=== PATIENT | male | born 1945 | race Caucasian/White ===

== ENCOUNTER 2024-04-02 10:28 | Inpatient (IN) | payer MEDICARE, OTHER, SELFPAY ==
[2024-03-27 08:34] VITALS: BMI 23.6
[2024-04-02] VITALS (9 sets, daily range): BP systolic 131–146; BP diastolic 66–80; PULSE 71–96; RESP 12–21; TEMP 35.9–37.2; O2SAT 93–100; BMI 22.4; BMI 26.0
--- NOTE | 2024-04-02 | DI.RAD.S_ITS ---
PROCEDURE: XR LUMBAR SPINE 2-3V INDICATIONS: L4-5 TLIF TECHNIQUE: 2 views of the lumbar spine were acquired. COMPARISON: [facility], CT, CT LUMBAR SPINE WITHOUT CONTRAST, 02/26/2024, 12:06. FINDINGS: Pedicle screw fixation at L4-L5. Intervertebral body spacers. IMPRESSION: Intraoperative guidance. Dictated by: Oh Yung M.D. on 04/02/2024 at 23:39 Approved by: Oh Yung M.D. on 04/02/2024 at 23:40
[2024-04-02] MEDS: LACTATED RINGERS 1,000 ML 42 ML IV (10:44)
[2024-04-02] MEDS: GABAPENTIN 300 MG CAPSULE PO (10:47)
[2024-04-02] MEDS: ACETAMINOPHEN 325 MG TABLET 975 MG PO (10:47)
--- NOTE | 2024-04-02 12:07 | PM.PREOP ---
Pre-operative Note Interval Note History & Physical reviewed/Exam performed by Physician: Yes Changes to H&P: No
--- NOTE | 2024-04-02 12:16 | SUR.OPER ---
Prone on spine table, head in foam head support, padded chest and pelvic supports, gel pad at knees, lower legs supported by pillows; nipples, genitalia and toes free of pressure, arms secured on foam padded arm boards at <90 degrees abduction. Tape over blanket at thigh secured to table.
--- NOTE | 2024-04-02 13:16 | PM.OP.1 ---
Operative Date/Time/Diagnoses Date of procedure: 04/02/24 Time of procedure: 13:17 Pre-op diagnosis: 1. 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 Lumbar hardware loosening 3. 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 L4-5 Postero-lateral and posterior interbody fusion 2. L4-5 interbody cage placement. 3. L4-5 decompressive laminectomy with bilateral facetecomies 4. L4-5 Posterior non-segmental instrumentation 5. L2-5 posterior segmental instrumentation removal 6. L2-3, L3-4 hemilaminectomy and exploration of fusion 7. [place] of bone marrow from iliac crest 8. Utilization of microsurgical technique and operating microscope 9. Utilization of robotic assisted navigation. Same procedure as scheduled: Yes Indications: Patient has been having chronic back pain and worsening lumbar radiculopathy. 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 Patient failed multiple conservative management with worsening pain weakness and numbness in his lower extremity. Patient has been having difficulty performing activity of daily living. After discussing risks benefits of treatment options, patient elected proceed with surgery. Surgeon: Miguel Lala Rn Sane: Regine López Click Yes if Unassisted: No Anesthesia Type: General Operative Notes Closure Type: primary Specimen(s): none sent Prosthetic devices, grafts, tissues, transplants, or devices: Globus CREO MIS screws, Rise cage Applied: catheter Estimated Blood Loss (mL): 100 Blood products transfused: none Procedure in detail: Patient was seen in the preoperative area. Risks and benefits of the surgery was discussed with the patient. Informed consent was obtained from the patient and placed in the chart. Surgical site was marked. Patient was taken to the operative room. General anesthesia was administered. Prophylactic antibiotic was given to the patient less than 30 min before the incision was made. Patient was placed into a prone position on the Manny table. Patient's back was then prepped and draped in the sterile fashion. Time-out was performed at this time. After patient was prepped and draped, patient's PSIS was palpated and marked bilaterally. Small 1 cm incision was made over the PSIS for placement of the reference probes. Two trocar was placed into the PSIS 1 on each side. The reference probe was attached to the trocar of the reference apparatus. At this time the C-arm imaging was used to confirm AP and lateral of L4, L5 vertebrae and merged the C-arm imaging using the [employer] robotic navigation system with the CT of the lumbar spine. After successful merging was completed and confirmed, skin marker was used to jahaira out the skin incision using the [employer] robotic arm. Bilateral incision was made at this time. Using patient's previous scar incision was made over the L4, L5 interval on the right side. Fascia was incised in line with skin incision. Patient's previously placed hardware over the L2, L3, L4-5 level was identified by dissecting down to the level the hardware using a Bovie and a Kramer. The locking caps which was removed using hardware removal pile driver operator. The locking josh was then removed from the tulips of the pedicle screws using a Lauren. The pedicle screws were then removed using the screwdriver. Pre templated trajectory was used and guided using the [employer] robotic navigation system for left L4, L5 pedicle screws and right L4, L5 pedicle screws placement. This was done by using the robotic arm to guide the high-speed bur to make a cortical entry point. Next a drill was placed also using the robotic arm and guided using the navigation system drilling partially through bilateral L4, L5 pedicles. Next L4, L5 pedicle screws it was pre templated and measured was placed onto the power pile driver operator and inserted into the pedicles bilaterally. After all 4 screws were placed C-arm imaging was taken of both AP and lateral to confirm the placement. Excellent placement of the screws were confirmed and a matched precisely with the pre planned screw placement using the navigation system. MARs retractor was inserted using [employer] guidence. Globus MARS retractors was placed inside the incision and docked onto the L4 lamina. Using microsurgical technique and operating microscope, a L4 laminectomy and L4-5 facetectomy was performed using a Kerrison rongeur. The laminectomy and facetectomy was performed in order to decompress patient's cauda equina as well as the nerve roots exiting at the L4-5 level. Patient was found have severe lateral recess and neural foramen stenosis which was fully decompressed after the laminectomy facetectomy. More than 75% of the facets were removed during the process of decompression rendering L4-5 level grossly unstable and required a fusion procedure at the same time. The disc space at L4-5 was identified, and a total diskectomy was performed at L4-5 level. The endplates were decorticated using a rasp and shaver. The total diskectomy and decortication was performed at L4-5 level in order to to accomplish a L4-5 fusion. The local bone from the laminectomy and facetectomy was saved for local bone grafting. After the total diskectomy and decortication was completed, Viacel bone graft material was combined with local bone that was harvested earlier. At this time, a separate skin is incision was made over the iliac crest. A Jamshidi needle was inserted into the iliac crest through a separate skin incision on the right. 5 cc of bone marrow aspiration was obtained through the separate skin incision using a Jamshidi needle from the iliac crest. The bone marrow aspiration was combined with local bone and the Viacel bone grafting material. The bone grafting material was placed into the L4-5 interbody space along with a expandable cage. The cages were expanded to its maximum height using the torque limiting screwdriver. The disc preparation as well as the cage insertion were also performed under navigation guidance. After the cage was placed, AP and lateral C-arm imaging was taken to confirm placement of the cage and excellent position was confirmed. The fusion mass on the right side of L2-3, L3-4 ,L4-5 was exposed by performing a right-sided hemilaminectomy at L2-3, L3-4, L4-5 level. The hemilaminectomy was performed using the Kerrison rongeur to undercut the lamina as well removing additional epidural scar tissue for purpose of decompressing the epidural space. The fusion mass was found to be solid at L2-3 L3-4 level and has visible motion at L4-5 level indicating pseudoarthrosis. Globus MARS retractor was inserted and docked onto the L4-5 posterolateral gutter. Using the power drill, posterior-lateral decortication was performed at L4-5 level until bleeding cortical bone was identified. The remaining bone grafting material was placed into the L4-5 posterior lateral gutter he order to accomplish posterolateral fusion at the L4-5 level. At this time the tulips were attached to the L4 and L5 pedicle screw shanks. This was done in L4 and L5 pedicles bilaterally. After measuring the length of the rods, they were inserted into the tulips of the pedicle screws and locked in place using locking caps and torque limiting screwdriver bilaterally. Total 4 caps and 2 titanium rods was used in order to complete the posterior instrumentation construct. After all the hardware was placed, and confirmed with AP and lateral C-arm imaging, the wound was then irrigated with sterile normal saline and packed with Ray-Jayesh gauze for 3 min to accomplish hemostasis. After the gauze was removed the deep fascia was closed with #1 Vicryl suture. The subcutaneous layer was closed with 2-0 Vicryl. The skin was closed with skin chino. Patient tolerated the procedure well. There were no complications. Neuro monitoring system was used to monitor patient's neurologic status throughout entire procedure. There was no disturbance of the neural monitoring signals throughout the case. The Operation could not have been safely performed without compromising the technical result or length of the procedure, without the assistance of a skilled surgical technology instructor. The surgical technology instructor was medically necessary for proper positioning, retraction and manipulation of instruments, proper exposure, surgical preparation, and manipulation of tissue. Complications: none Post-operative Condition: stable Disposition: PACU Plan for aftercare: Admit to inpatient hospital
[2024-04-02] MEDS: CEFAZOLIN 2 GM/100 ML PREMIX 100 ML IV ×2 (13:34→21:23)
[2024-04-02] MEDS: BUPIVACAINE 0.25% (PF) 60 ML, EPINEPHrine 0.15 MG INJ (13:59)
[2024-04-02] MEDS: BUPIVACAINE LIPOSOME 266 MG/20 ML VIAL INJ (13:59)
[2024-04-02] MEDS: hydrOXYzine 50 MG/ML INJ 25 MG IM (16:55)
[2024-04-02] MEDS: OXYCODONE IR 5 MG TABLET PO ×3 (16:56→21:20)
[2024-04-02] MEDS: ACETAMINOPHEN 325 MG TABLET 650 MG PO (18:10)
[2024-04-02] MEDS: LACTATED RINGERS 1,000 ML 125 ML IV (18:10)
--- NOTE | 2024-04-02 19:34 | PC.NURSE ---
Pt arrived from PACU at 1710, A&Ox4, VSS on RA. CMS+, lungs CTA, c/o 4/10 back pain, gauze and tape dressing to back c/d/i, márquez catheter patent and draining. Patient and family oriented to room and call light. Bed in low position, call light within reach, bed alarm activated.
[2024-04-02] MEDS: DONEPEZIL 5 MG TABLET 10 MG PO (21:19)
[2024-04-02] MEDS: METFORMIN HCL 500 MG TABLET PO (21:20)
[2024-04-02] MEDS: ATORVASTATIN 20 MG TABLET PO (21:20)
[2024-04-02] MEDS: SENNOSIDES 8.6 MG TABLET 17.2 MG PO (21:20)
[2024-04-02] MEDS: DOCUSATE 100 MG CAPSULE PO (21:20)
[2024-04-02] MEDS: CARBIDOPA-LEVODOPA ER 50/200 TABLET 1 EACH PO (21:28)
[2024-04-02] MEDS: CARBIDOPA-LEVODOPA ER 50/200 TABLET 0.5 EACH PO (21:28)
[2024-04-03] MEDS: LACTATED RINGERS 1,000 ML 125 ML IV (02:10)
[2024-04-03 05:44] LABS: Hematocrit 30.8 % (41-53); Hemoglobin 10.5 g/dL (13.5-17.5)
[2024-04-03 06:00] VITALS: BP 136/84; PULSE 64; RESP 18; TEMP 37; O2SAT 96
[2024-04-03] MEDS: CEFAZOLIN 2 GM/100 ML PREMIX 100 ML IV (06:15)
[2024-04-03] MEDS: ACETAMINOPHEN 325 MG TABLET 650 MG PO (06:28)
[2024-04-03] MEDS: PANTOPRAZOLE DR 20 MG TABLET PO (06:28)
[2024-04-03] MEDS: CARBIDOPA-LEVODOPA ER 50/200 TABLET 1.5 EACH PO ×2 (07:30→12:03)
--- NOTE | 2024-04-03 07:42 | PM.DS.1 ---
History of Present Illness History of Present Illness Date Patient Seen: 04/03/24 Time Patient Seen: 07:42 Chief complaint: INPT Narrative: Patient has been having chronic back pain and worsening lumbar radiculopathy. 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 Patient failed multiple conservative management with worsening pain weakness and numbness in his lower extremity. Patient has been having difficulty performing activity of daily living. After discussing risks benefits of treatment options, patient elected proceed with surgery. Discharge Providers Provider Date of admission: 04/02/24 10:28 Discharge Date: 04/03/24 Consults: 04/02/24 17:00 Consult to Occupational Therapy Evaluate & Treat Comment: Physician Instructions: Evaluate and treat Consult to Physical Therapy Evaluate & Treat Comment: Physician Instructions: Evaluate and Treat Discharge provider: Waylon Cano PA-C Summary Hospital Course Discharge Diagnosis: 1. 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 Lumbar hardware loosening 3. 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 L4-5 Postero-lateral and posterior interbody fusion 2. L4-5 interbody cage placement. 3. L4-5 decompressive laminectomy with bilateral facetecomies 4. L4-5 Posterior non-segmental instrumentation 5. L2-5 posterior segmental instrumentation removal 6. L2-3, L3-4 hemilaminectomy and exploration of fusion 7. [place] of bone marrow from iliac crest 8. Utilization of microsurgical technique and operating microscope 9. Utilization of robotic assisted navigation. Same procedure as scheduled: Yes Surgeon: Miguel Lala Cell Technician: Regine López Click Yes if Unassisted: No Anesthesia Type: General Operative Notes Closure Type: primary Specimen(s): none sent Prosthetic devices, grafts, tissues, transplants, or devices: Globus CREO MIS screws, Rise cage Applied: catheter Estimated Blood Loss (mL): 100 Blood products transfused: none Status at Discharge Cognitive/behavioral status at discharge: oriented Functional status at discharge: uses cane/walker Overall status at discharge: patient is back to baseline Time Spent with Patient Time spent: Less than 30 minutes Exam Vital Signs (past 8 hours): - 04/03/24 06:00 Temperature 98.6 F Pulse Rate 64 Respiratory Rate 18 Blood Pressure 136/84 Pulse Oximetry 96 Oxygen Flow Rate 0 Oxygen Delivery Method Room Air Oxygen Flow Rate 0 Narrative Exam Narrative: Patient found sitting in his bed. Denies any nausea, vomiting, fever or chills. Pain is localized to his back. He states his right leg was weaker than his left before surgery. Dressing is clean, dry and intact. Lower extremities: Left 3/5 EHL, PF, 4/5 DF, knee flex and extend Right: 5/5 EHL, PF< DF, knee flex and extend. Sensation grossly intact to light touch. Resp Effort & Inspection: normal respiratory effort and able to speak in complete sentences Objective Labs 04/03/24 05:37 Labs: Laboratory Results - last 24 hr 04/03/24 05:37 Hgb 10.5 L Hct 30.8 L PFSH Medical History (Updated 03/27/24 @ 09:19 by Bessie Akbar RN) Memory changes Dermatitis Easy bruisability Kidney stones GERD (gastroesophageal reflux disease) HTN (hypertension) Diabetes Neuropathy Parkinson disease Surgical History (Updated 03/27/24 @ 09:19 by Bessie Akbar RN) Hx of shoulder surgery Hx of elbow surgery Hx of tonsillectomy Hx of lithotripsy Hx of cholecystectomy Hx of bilateral cataract extraction History of lumbar surgery (02/07/16) Social History household members: spouse Smoking Status: Former smoker alcohol intake: former Discharge Assessment & Plan Assessment and Plan Assessment: Status post lumbar hardware removal and TLIF Plan of Treatment: Discharge to home. Post operative medications have been prescribed and discussed. Baseline pain control with acetaminophen 500mg q4hr prn. Ambulate with assistive devices. No deep bending or twisting at the waist. No lifting more than 10 pounds. Follow up in clinic in 2 weeks for wound check. Discharge Plan Discharge Plan Patient Disposition: Home Provider Discharge Comment: DC pending PT approval Discharge orders & Medications Prescriptions: Continued omeprazole 20 MG capsule,delayed release(DR/EC) 20 mg PO QDAY Qty: 0 atorvastatin [Lipitor] 20 MG tablet 20 mg PO QPM Qty: 0 aspirin 81 MG tablet,delayed release (DR/EC) 81 mg PO QPM Qty: 0 metformin 500 mg Tablet 500 mg PO BID carbidopa-levodopa 25-100 mg Tablet Extended Release 1 tab PO TID donepezil [Aricept] 10 mg Tablet 10 mg PO BEDTIME glipizide 10 mg Tablet 10 mg PO DAILY carbidopa-levodopa 50-200 mg Tablet Extended Release 1 tab PO TID Rx Instructions: divide evenly over waking hours losartan 100 mg Tablet 100 mg PO DAILY Follow up/Referrals: Regine López PA-C [Advanced Acquisitions Editor] - 04/21/24 1:00 pm (appt:04/21 @ 1:00 with Nisreen MEI @ [facility] please arrive 15 min prior to scheduled appointment time) Diet/Activity/Treatments Diet: Diet as Tolerated Activity: No deep bending or twisting at the waist. No lifting more than 10 pounds. Cold/Heat Therapy: Heating pad as needed for pain. Skin/Wound/Dressing Care Report to your healthcare provider any signs of infection, such as:: chills, fever, night sweats, unusual drainage and unusual redness Dressing: May shower. Keep dressings as dry as possible. If dressing becomes wet or dirty, may remove and replace with clean, dry gauze. No bathing or otherwise soaking incisions. Do not apply any creams, lotions, or ointments to incisions. Visit Report/Discharge Packet Instructions: DI for Orthostatic Hypotension, DI for Transforaminal Lumbar Interbody Fusion Stand Alone Forms: Patient Portal/API, Stroke Signs & Symptoms, Surgery Discharge Quality VTE Deep Vein Thrombosis/Pulmonary Embolism Present on Admission: No
[2024-04-03 08:00] VITALS: BP 113/66; PULSE 67; RESP 14; TEMP 36.6; O2SAT 97
[2024-04-03] MEDS: METFORMIN HCL 500 MG TABLET PO (08:14)
[2024-04-03] MEDS: DOCUSATE 100 MG CAPSULE PO (08:14)
[2024-04-03] MEDS: OXYCODONE IR 5 MG TABLET PO (08:15)
--- NOTE | 2024-04-03 09:18 | CM.DANOTE ---
Initial DCP Assessment Visit Note Reviewed EMR and team rounds for status updates. Met with pt and family at bedside to introduce self and role. Pt was found to be alert/oriented, visiting with family, expressing feeling that his pain is well controlled. He will be working with PT later this morning, then will d/c home with family, family will transport. Pt/family deny any CM assistance or resource needs at this time. He has a plan for OP f/u with Ortho on 04/21, during which Dr. Lala will discuss the plan for OP PT. Payor: Medicare Attending: Dr. Lala Pt is an 79 year-old M post-op day 1 from a complicated lumbar fusion surgery. He has had the same hx several years ago with good benefit, until he lost his balance while working outside, fell backward, and has had worsening pain since that time. He had no postoperative complications, and is feeling ready for d/c home later this morning. Family will be providing care assistance during his initial recovery period. Discharge Planning/Care Management CM Discharge Assessment Start: 04/03/24 09:16 Freq: Status: Active Protocol: Document 04/03/24 09:17 DPL (Rec: 04/03/24 09:18 DPL [id number]) Discharge Planning Assessment Assigned Structural Layout Worker FÉLIX Bui Advance Directives? Yes Advance Directives on File No History Provided By Patient,Family Member,Medical Record Has Patient been admitted in last 30 No days? Prior Living Arrangements House Household Members spouse Type of transporation used prior to Drives own vehicle admit Independent with ADL's Yes Is patient alert and oriented? Yes Comment N/A Caregiver for Another No DME Already Rented / Owned Elevated Toilet Seat,FWW / Walker Patient/Family Preference OP PT Therapy Barriers to Discharge No Discharge Plan Home Community Services Physical Therapy Transportation Arrangement Family Referrals Initiated None needed Whiteboard Updated in Patient Room with Yes name and ext. # of Structural Layout Worker Review Status In Process Please Provide Date Initial DC 04/03/24 Assessment Was Performed Pre-Anesthesia Assessment Start: 03/27/24 08:34 Freq: Status: Complete Protocol: Document 03/27/24 08:34 CAB (Rec: 03/27/24 09:38 CAB [id number]) Pre-Anesthesia Assessment PAC Comment Phone assessment with patient Preferred Name Omega Patient Information Reviewed Via Phone Assessment Assessment Completed With Patient,Spouse Diagnostic Results BMP/CMP,CBC,EKG Comment Outside labs/EKG scanned Primary Care Provider Adair Schulz Comment visit 09/06/23 scanned and in surgery folder Seen Specialist in Last 12 Months Yes Specialist Seen Operations And Maintenance Manager,Orthopedist, Other Comment Neurology-Dr. Reed Visit 01/16/24 scanned and in surgery folder Primary Language Wolof Recorder Helper Seismograph Required No Height 175.26 cm Weight 72.575 kg Body Mass Index (BMI) 23.6 Hearing Ability Normal Visual Assist Glasses Dentition Type Teeth, Natural Present,Teeth, Missing Barriers to Learning Age related,Memory Hx Anesthesia Reactions No Hx Family Anesthesia Reaction Yes: A cousin never came out of anesthesia Hx Malignant Hyperthermia No Hx Blood Transfusions No Anesthesia Review Requested No Chief Lending Officer No alcohol intake former Smoking Status Former smoker how long ago did patient quit smoking In the s Substance Use Type does not use Pain Present Pain Reported Musculoskeletal Symptoms Abnormal Gait,Back Pain, Difficulty Walking History of Falling (Recent or History of Yes ) Patient is completely paralyzed or No completely immobile Mental Status Oriented to own ability Is patient on oxygen? No Does patient have COLIN/SOB No Hx Sleep Apnea No Currently Taking a Beta Yajaira No Hx Chest Pain No Hx SOB No Hx Syncope or Dizziness No Anti-Coagulant Therapy Yes: ASA 81mg-advised to hold 7 days prior per PCP Has a Quad Stayer No Cardiac Testing No Hx Pacemaker/ICD No Pacemaker Rep Required? No Cardiac Clearance Received Not Applicable Diet Type At Home Regular,Low Carb Dysphagia Yes: Sometimes, related to pills Gastrointestinal Symptoms Reflux Bladder Pattern Nocturia Urinary Catheter Present No Hx Urinary Self Catheterization No Diabetes Yes: Pt checks blood sugar every morning HgbA1C 6.7 Comment Pt states taken in August Hx Drug Resistant Organism No Presence of External or Internal Medical Yes: Vinicio eye IOLs, lumbar Devices hardware, Comment No Covid symptoms in last 2 months Marital Status Lives With spouse Current Living Arrangements House Number of Floors (Floors) One Floor Number of Stairs To Enter/Railing? 4, no railings in front Support System Spouse Does the Patient Have Assistance After Yes Surgery Patient Discharge Plan Description Return Home Comment Pt advised overnight length of stay per surgeon Feels Safe in Current Environment Yes Been Physically Hurt or Threatened By a No Person in Current Environment Do you have thoughts of harming yourself None or others? Are you currently considering suicide? No Do you have a plan to hurt yourself or No Plan others? Do You Have Any Spiritual Beliefs That No May Affect Your HC Choices? Do You Have Any Cultural Practices That No May Affect Your HC Choices? Who Can We Speak to About Patient's Care Family, friends Identifying Code for Release of Patient Declines to issue Information Health Care Proxy/Next of Kin Rylie () Health Care Proxy Emergency Contact Name Nel (daughter) Emergency Contact Advance Directives? Yes Advance Directives on File No Requested Patient Bring Advanced Yes Directives DOS Power of Blood Donor Unit Assistant Yes Power of Blood Donor Unit Assistant Name Rylie () Power of Blood Donor Unit Assistant PAC Instructions Diabetes instructions,Durable medical equipment,Medications to take/avoid,Nasal antibiotic ,No ETOH/petroleum product on skin DOS,NPO,Pre-surgical wash ,Sturdy shoes/comfortable clothes,Do not bring valuables and remove jewelry
--- NOTE | 2024-04-03 10:31 | PT.IIE ---
Current Diagnoses Pseudarthrosis after fusion or arthrodesis (04/02/24) Other mechanical complication of other internal orthopedic devices, implants and grafts, initial encounter (04/02/24) Surgery Performed Operation Date: 04/02/24 12:15 Actual Procedures p L4-5 TLIF, L2-5 HWR-Jessica - Miguel Lala MD Surgical History (Last Updated 03/27/24 @ 09:19 by Bessie Akbar, RN) History of lumbar surgery (02/07/16) Hx of bilateral cataract extraction Hx of cholecystectomy Hx of elbow surgery Hx of lithotripsy Hx of shoulder surgery Hx of tonsillectomy Medical History (Last Updated 03/27/24 @ 09:19 by Bessie Akbar, PARVEENA) Dermatitis Diabetes Easy bruisability GERD (gastroesophageal reflux disease) HTN (hypertension) Kidney stones Memory changes Neuropathy Parkinson disease Physical Therapy Inpatient Evaluation/Re-Eval M1 PT/OT-IP Prior Functional Status Start: 04/03/24 08:16 Freq: NEEDED Status: Active Protocol: Document 04/03/24 08:49 MB (Rec: 04/03/24 10:30 MB [id number]) Medical Review Prior Functional Status Medical History Reviewed Yes Diet/Fluid Consistency Regular Communication WNLs Mobility and Gait I Activities of Daily Living and IADL's I Prior Functional Level (Other details) Pt with recent dx of PD, about a year Social History Household Members spouse Living Arrangements House Number of Floors (Floors) One Floor Number of Stairs To Enter/Railing? 3 steps and no rail to enter home Employment Status Retired Additional Social History Comment Pt has regular flat bed and no rails and no AD in the home, PT needing to head out to rounds and obtain RW and PT trying to get done for nsg student to take out catheter and so will defer BR set-up to OT eval this afternoon. PT answers many questions about PD, orthostatic hypotension and RW during assessment, ed pt in back precautions and pt practices log rolling. M2 PT-IP Current Condition Start: 04/03/24 08:16 Freq: NEEDED Status: Active Protocol: Document 04/03/24 08:49 MB (Rec: 04/03/24 10:30 MB [id number]) Physical Therapy Current Condition Current Condition Evaluation Date 04/03/24 Treatment Diagnosis L4-5 TLIF, L2-5 hardware removal M3 PT-IP Subjective Start: 04/03/24 08:16 Freq: NEEDED Status: Active Protocol: Document 04/03/24 08:49 MB (Rec: 04/03/24 10:30 MB [id number]) Subjective Physical Therapy Visit Type Type Initial Evaluation Visit Start Time 08:49 Visit Stop Time 09:44 Notes Pt and family state that he has not been OOB since surgery , arrived up to floor after 1700 last date Number of NEON SIGN SERVICER Visits 0 Physical Therapy Visit Comments Patient Comments Pt is pleasant and cracking jokes during assessment, nsg student checking in about removing catheter during assessment Therapy Pain Assessment Pain When Pain Assessed At Rest Pain Present Pain Present Pain Reported M4 PT-IP Mobility and Gait Start: 04/03/24 08:16 Freq: NEEDED Status: Active Protocol: Document 04/03/24 08:49 MB (Rec: 04/03/24 10:30 MB [id number]) PT-Bed Mobility Assessment Rolling Type of Rolling Log Rolling,Roll to Right Level of Assist Standby Assistance Supine to Sit Supine to Sit Standby Assistance Sit to Supine Sit to Supine Standby Assistance Scooting Scooting to Edge of Bed Standby Assistance PT-Transfer Assessment Sit to and From Stand Sit to and from Stand Minimal Assistance,1 Person Assistance,Use of Upper Extremities Equipment Transfer Assistive Device Gait Belt,Front Wheeled Walker Comments Mobility Comments Min A to transfer and to take a few steps forward and back with RW. Pt c/o light- headedness upon sitting. BP and HR in LUE: sitting 106/68, 111; standing 83/61, 111 and pt with con't c/o when up and so returned to supine d/t orthostasis as well as nsg student to d/c márquez. Gait Assessment Gait Gait Assistance Required: Minimum Assistance Distance (Feet) 3 Able to Maintain Weight Bearing Status Yes During Gait Assistive Devices Assistive Device Gait Belt,Front Wheeled Walker Orthotic/Prosthetic Devices or Brace: No Factors Limiting Gait Function Factors Limiting Gait Function Decreased Activity Tolerance, Poor Balance Comments Gait Comments Light-headedness when up and pt is orthstatic and so cannot advance to gait and steps this a.m. PT-Balance Assessment Sitting Balance and Reactions Static Sitting Balance Ability Good Dynamic Sitting Balance Ability Fair Standing Balance and Reactions Static Standing Balance Ability Fair Dynamic Standing Balance Ability Fair Device Used RW M5 PT-IP Objective Assessments Start: 04/03/24 08:16 Freq: NEEDED Status: Active Protocol: Document 04/03/24 08:49 MB (Rec: 04/03/24 10:30 MB [id number]) Orientation Orientation/Cognition Level of Alertness Alert Orientation Name,Age,Birthday,Month,Date, Year,Place,Situation Language Function Ability No Deficits Noted Safety Awareness Decreased Safety Awareness Memory Description No Deficits Noted Comments Pt recalls rolling from previous back surgery and re- ed on back precautions today Gross Range of Motion Upper Extremity ROM Impairments Defer to OT Lower Extremity ROM Assessment Within Functional Limits Strength Lower Extremity Strength Assessment Within Functional Limits Comments Strength Comments LE range and strength functionally observed this date. Coordination Assessment Gross Coordination Gross Coordination Impaired Assessment Coordination Comments Bradykinesia and PD changes in right hand with writing Sensation Assessment Comments Sensation Comments Denies sensory changes M6 PT-IP Treatment Start: 04/03/24 08:16 Freq: NEEDED Status: Active Protocol: Document 04/03/24 08:49 MB (Rec: 04/03/24 10:30 MB [id number]) Physical Therapy Treatment Education Education Provided Precautions,Post-Op Packet, Safety Other Treatments Other Treatment Performed PT answers many questions about PD, orthostatic hypotension and RW during assessment, ed pt in back precautions and pt practices log rolling. M7 PT-IP Assessment and Plan Start: 04/03/24 08:16 Freq: NEEDED Status: Active Protocol: Document 04/03/24 08:49 MB (Rec: 04/03/24 10:30 MB [id number]) PT Summary Assessment and Plan Potential Rehabilitation Potential Good Status of Condition at Evaluation Evolving Summary Impairments Balance,Coordination,Bed Mobility,Transfers,Gait, Activity Tolerance Progress Towards Goals Slow Progress - Other Assessment Summary Pt is a pleasant 79 y/o male POD1 lumbar TLIF and hardware removal. He has not yet been OOB on PT arrival and d/c order is already in chart. Pt with history of PD and he is light-headed upon sitting up to EOB and his systolic BP drops 23 mmHg sit to stand and he con't with symptoms when standing and taking a few steps. This limits mobility with PT and returned to bed and supine and nsg student also to remove catheter. Recommend up to chair with nsg and progress gait and steps when BP is stable. He is currently min A for minimal mobility. Supportive and daughter nearby for assessment and PT obtains order for and RW for pt. Communicated with nsg about orthostatics. Goals Bed Mobility Goal Independent Transfer Goal Independent,Front Wheeled Walker Gait Goal Independent,Front Wheel Walker Gait Distance 100 Other Goals Pt will ascend and descend 3 steps with LRAD and min A to allow safe home entrance. Days to Meet Goals 3 Frequency of Treatment Frequency Of Treatment Twice a Day Treatment Plan Physical Therapy Treatment Plan Bed Mobility Training,Transfer Training,Gait Training, Therapeutic Exercise,Balance Retraining,Post Op Education, Discharge Planning,Hot or Cold Pack,Neuromuscular Re-ed, Coordination Retraining,Manual Therapy Precautions Lumbar Precautions Log Roll,No Twisting,Limit Bending,Lifting Restriction of 10 lbs,Gait Belt above Incisional Area Recommendations To Nursing Amount of Assist Needed 1 Person Assist Discharge Recommendations PT Discharge Recommendations Home with 24/ Assist Available Other Discharge Recommendations May need HH Equipment Needed for Home Before PT obtained RW Discharge Transportation Needs at Discharge Private Vehicle
--- NOTE | 2024-04-03 11:06 | PT.IIE ---
Current Diagnoses Pseudarthrosis after fusion or arthrodesis (04/02/24) Other mechanical complication of other internal orthopedic devices, implants and grafts, initial encounter (04/02/24) Surgery Performed Operation Date: 04/02/24 12:15 Actual Procedures p L4-5 TLIF, L2-5 HWR-Jessica - Miguel Lala MD Surgical History (Last Updated 03/27/24 @ 09:19 by Bessie Akbar, RN) History of lumbar surgery (02/07/16) Hx of bilateral cataract extraction Hx of cholecystectomy Hx of elbow surgery Hx of lithotripsy Hx of shoulder surgery Hx of tonsillectomy Medical History (Last Updated 03/27/24 @ 09:19 by Bessie Akbar RN) Dermatitis Diabetes Easy bruisability GERD (gastroesophageal reflux disease) HTN (hypertension) Kidney stones Memory changes Neuropathy Parkinson disease Physical Therapy Inpatient Evaluation/Re-Eval M1 PT/OT-IP Prior Functional Status Start: 04/03/24 08:16 Freq: NEEDED Status: Active Protocol: Document 04/03/24 08:49 MB (Rec: 04/03/24 10:30 MB [id number]) Medical Review Prior Functional Status Medical History Reviewed Yes Diet/Fluid Consistency Regular Communication WNLs Mobility and Gait I Activities of Daily Living and IADL's I Prior Functional Level (Other details) Pt with recent dx of PD, about a year Social History Household Members spouse Living Arrangements House Number of Floors (Floors) One Floor Number of Stairs To Enter/Railing? 3 steps and no rail to enter home Home Environment High Toilet,Walk in Shower, Built-In Shower Seat Employment Status Retired Additional Social History Comment Pt has regular flat bed and no rails and no AD in the home M2 PT-IP Current Condition Start: 04/03/24 08:16 Freq: NEEDED Status: Active Protocol: Document 04/03/24 08:49 MB (Rec: 04/03/24 10:30 MB [id number]) Physical Therapy Current Condition Current Condition Evaluation Date 04/03/24 Treatment Diagnosis L4-5 TLIF, L2-5 hardware removal M3 PT-IP Subjective Start: 04/03/24 08:16 Freq: NEEDED Status: Active Protocol: Document 04/03/24 08:49 MB (Rec: 04/03/24 10:30 MB [id number]) Subjective Physical Therapy Visit Type Type Initial Evaluation Visit Start Time 08:49 Visit Stop Time 09:44 Notes Pt and family state that he has not been OOB since surgery , arrived up to floor after 1700 last date Number of STAFF ENGINEER Visits 0 Physical Therapy Visit Comments Patient Comments Pt is pleasant and cracking jokes during assessment, nsg student checking in about removing catheter during assessment Therapy Pain Assessment Pain When Pain Assessed At Rest Pain Present Pain Present Pain Reported M4 PT-IP Mobility and Gait Start: 04/03/24 08:16 Freq: NEEDED Status: Active Protocol: Document 04/03/24 08:49 MB (Rec: 04/03/24 10:30 MB [id number]) PT-Bed Mobility Assessment Rolling Type of Rolling Log Rolling,Roll to Right Level of Assist Standby Assistance Supine to Sit Supine to Sit Standby Assistance Sit to Supine Sit to Supine Standby Assistance Scooting Scooting to Edge of Bed Standby Assistance PT-Transfer Assessment Sit to and From Stand Sit to and from Stand Minimal Assistance,1 Person Assistance,Use of Upper Extremities Equipment Transfer Assistive Device Gait Belt,Front Wheeled Walker Comments Mobility Comments Min A to transfer and to take a few steps forward and back with RW. Pt c/o light- headedness upon sitting. BP and HR in LUE: sitting 106/68, 111; standing 83/61, 111 and pt with con't c/o when up and so returned to supine d/t orthostasis as well as nsg student to d/c márquez. Gait Assessment Gait Gait Assistance Required: Minimum Assistance Distance (Feet) 3 Able to Maintain Weight Bearing Status Yes During Gait Assistive Devices Assistive Device Gait Belt,Front Wheeled Walker Orthotic/Prosthetic Devices or Brace: No Factors Limiting Gait Function Factors Limiting Gait Function Decreased Activity Tolerance, Poor Balance Comments Gait Comments Light-headedness when up and pt is orthstatic and so cannot advance to gait and steps this a.m. PT-Balance Assessment Sitting Balance and Reactions Static Sitting Balance Ability Good Dynamic Sitting Balance Ability Fair Standing Balance and Reactions Static Standing Balance Ability Fair Dynamic Standing Balance Ability Fair Device Used RW M5 PT-IP Objective Assessments Start: 04/03/24 08:16 Freq: NEEDED Status: Active Protocol: Document 04/03/24 08:49 MB (Rec: 04/03/24 10:30 MB [id number]) Orientation Orientation/Cognition Level of Alertness Alert Orientation Name,Age,Birthday,Month,Date, Year,Place,Situation Language Function Ability No Deficits Noted Safety Awareness Decreased Safety Awareness Memory Description No Deficits Noted Comments Pt recalls rolling from previous back surgery and re- ed on back precautions today Gross Range of Motion Upper Extremity ROM Impairments Defer to OT Lower Extremity ROM Assessment Within Functional Limits Strength Lower Extremity Strength Assessment Within Functional Limits Comments Strength Comments LE range and strength functionally observed this date. Coordination Assessment Gross Coordination Gross Coordination Impaired Assessment Coordination Comments Bradykinesia and PD changes in right hand with writing Sensation Assessment Comments Sensation Comments Denies sensory changes M6 PT-IP Treatment Start: 04/03/24 08:16 Freq: NEEDED Status: Active Protocol: Document 04/03/24 08:49 MB (Rec: 04/03/24 10:30 MB [id number]) Physical Therapy Treatment Education Education Provided Precautions,Post-Op Packet, Safety Other Treatments Other Treatment Performed PT answers many questions about PD, orthostatic hypotension and RW during assessment, ed pt in back precautions and pt practices log rolling. M7 PT-IP Assessment and Plan Start: 04/03/24 08:16 Freq: NEEDED Status: Active Protocol: Document 04/03/24 08:49 MB (Rec: 04/03/24 10:30 MB [id number]) PT Summary Assessment and Plan Potential Rehabilitation Potential Good Status of Condition at Evaluation Evolving Summary Impairments Balance,Coordination,Bed Mobility,Transfers,Gait, Activity Tolerance Progress Towards Goals Slow Progress - Other Assessment Summary Pt is a pleasant 79 y/o male POD1 lumbar TLIF and hardware removal. He has not yet been OOB on PT arrival and d/c order is already in chart. Pt with history of PD and he is light-headed upon sitting up to EOB and his systolic BP drops 23 mmHg sit to stand and he con't with symptoms when standing and taking a few steps. This limits mobility with PT and returned to bed and supine and nsg student also to remove catheter. Recommend up to chair with nsg and progress gait and steps when BP is stable. He is currently min A for minimal mobility. Supportive and daughter nearby for assessment and PT obtains order for and RW for pt. Communicated with nsg about orthostatics. Goals Bed Mobility Goal Independent Transfer Goal Independent,Front Wheeled Walker Gait Goal Independent,Front Wheel Walker Gait Distance 100 Other Goals Pt will ascend and descend 3 steps with LRAD and min A to allow safe home entrance. Days to Meet Goals 3 Frequency of Treatment Frequency Of Treatment Twice a Day Treatment Plan Physical Therapy Treatment Plan Bed Mobility Training,Transfer Training,Gait Training, Therapeutic Exercise,Balance Retraining,Post Op Education, Discharge Planning,Hot or Cold Pack,Neuromuscular Re-ed, Coordination Retraining,Manual Therapy Precautions Lumbar Precautions Log Roll,No Twisting,Limit Bending,Lifting Restriction of 10 lbs,Gait Belt above Incisional Area Recommendations To Nursing Amount of Assist Needed 1 Person Assist Discharge Recommendations PT Discharge Recommendations Home with / Assist Available Other Discharge Recommendations May need HH Equipment Needed for Home Before PT obtained RW Discharge Transportation Needs at Discharge Private Vehicle
--- NOTE | 2024-04-03 11:09 | PT.IIE ---
Current Diagnoses Pseudarthrosis after fusion or arthrodesis (04/02/24) Other mechanical complication of other internal orthopedic devices, implants and grafts, initial encounter (04/02/24) Surgery Performed Operation Date: 04/02/24 12:15 Actual Procedures p L4-5 TLIF, L2-5 HWR-Jessica - Miguel Lala MD Surgical History (Last Updated 03/27/24 @ 09:19 by Bessie Akbar, RN) History of lumbar surgery (02/07/16) Hx of bilateral cataract extraction Hx of cholecystectomy Hx of elbow surgery Hx of lithotripsy Hx of shoulder surgery Hx of tonsillectomy Medical History (Last Updated 03/27/24 @ 09:19 by Bessie Akbar, RN) Dermatitis Diabetes Easy bruisability GERD (gastroesophageal reflux disease) HTN (hypertension) Kidney stones Memory changes Neuropathy Parkinson disease Physical Therapy Inpatient Evaluation/Re-Eval M1 PT/OT-IP Prior Functional Status Start: 04/03/24 08:16 Freq: NEEDED Status: Active Protocol: Document 04/03/24 08:49 MB (Rec: 04/03/24 10:30 MB [id number]) Medical Review Prior Functional Status Medical History Reviewed Yes Diet/Fluid Consistency Regular Communication WNLs Mobility and Gait I Activities of Daily Living and IADL's assistance for socks and occ more assist for showers and dressing, depending on the day Prior Functional Level (Other details) Pt with recent dx of PD, about a year Social History Household Members spouse Living Arrangements House Number of Floors (Floors) One Floor Number of Stairs To Enter/Railing? 3 steps and no rail to enter home Home Environment High Toilet,Walk in Shower, Built-In Shower Seat Employment Status Retired Additional Social History Comment Pt has regular flat bed and no rails and no AD in the home M2 PT-IP Current Condition Start: 04/03/24 08:16 Freq: NEEDED Status: Active Protocol: Document 04/03/24 08:49 MB (Rec: 04/03/24 10:30 MB [id number]) Physical Therapy Current Condition Current Condition Evaluation Date 04/03/24 Treatment Diagnosis L4-5 TLIF, L2-5 hardware removal M3 PT-IP Subjective Start: 04/03/24 08:16 Freq: NEEDED Status: Active Protocol: Document 04/03/24 08:49 MB (Rec: 04/03/24 10:30 MB [id number]) Subjective Physical Therapy Visit Type Type Initial Evaluation Visit Start Time 08:49 Visit Stop Time 09:44 Notes Pt and family state that he has not been OOB since surgery , arrived up to floor after 1700 last date Number of CORPORATE SPECIALIST Visits 0 Physical Therapy Visit Comments Patient Comments Pt is pleasant and cracking jokes during assessment, nsg student checking in about removing catheter during assessment Therapy Pain Assessment Pain When Pain Assessed At Rest Pain Present Pain Present Pain Reported M4 PT-IP Mobility and Gait Start: 04/03/24 08:16 Freq: NEEDED Status: Active Protocol: Document 04/03/24 08:49 MB (Rec: 04/03/24 10:30 MB [id number]) PT-Bed Mobility Assessment Rolling Type of Rolling Log Rolling,Roll to Right Level of Assist Standby Assistance Supine to Sit Supine to Sit Standby Assistance Sit to Supine Sit to Supine Standby Assistance Scooting Scooting to Edge of Bed Standby Assistance PT-Transfer Assessment Sit to and From Stand Sit to and from Stand Minimal Assistance,1 Person Assistance,Use of Upper Extremities Equipment Transfer Assistive Device Gait Belt,Front Wheeled Walker Comments Mobility Comments Min A to transfer and to take a few steps forward and back with RW. Pt c/o light- headedness upon sitting. BP and HR in LUE: sitting 106/68, 111; standing 83/61, 111 and pt with con't c/o when up and so returned to supine d/t orthostasis as well as nsg student to d/c márquez. Gait Assessment Gait Gait Assistance Required: Minimum Assistance Distance (Feet) 3 Able to Maintain Weight Bearing Status Yes During Gait Assistive Devices Assistive Device Gait Belt,Front Wheeled Walker Orthotic/Prosthetic Devices or Brace: No Factors Limiting Gait Function Factors Limiting Gait Function Decreased Activity Tolerance, Poor Balance Comments Gait Comments Light-headedness when up and pt is orthstatic and so cannot advance to gait and steps this a.m. PT-Balance Assessment Sitting Balance and Reactions Static Sitting Balance Ability Good Dynamic Sitting Balance Ability Fair Standing Balance and Reactions Static Standing Balance Ability Fair Dynamic Standing Balance Ability Fair Device Used RW M5 PT-IP Objective Assessments Start: 04/03/24 08:16 Freq: NEEDED Status: Active Protocol: Document 04/03/24 08:49 MB (Rec: 04/03/24 10:30 MB [id number]) Orientation Orientation/Cognition Level of Alertness Alert Orientation Name,Age,Birthday,Month,Date, Year,Place,Situation Language Function Ability No Deficits Noted Safety Awareness Decreased Safety Awareness Memory Description No Deficits Noted Comments Pt recalls rolling from previous back surgery and re- ed on back precautions today Gross Range of Motion Upper Extremity ROM Impairments Defer to OT Lower Extremity ROM Assessment Within Functional Limits Strength Lower Extremity Strength Assessment Within Functional Limits Comments Strength Comments LE range and strength functionally observed this date. Coordination Assessment Gross Coordination Gross Coordination Impaired Assessment Coordination Comments Bradykinesia and PD changes in right hand with writing Sensation Assessment Comments Sensation Comments Denies sensory changes M6 PT-IP Treatment Start: 04/03/24 08:16 Freq: NEEDED Status: Active Protocol: Document 04/03/24 08:49 MB (Rec: 04/03/24 10:30 MB [id number]) Physical Therapy Treatment Education Education Provided Precautions,Post-Op Packet, Safety Other Treatments Other Treatment Performed PT answers many questions about PD, orthostatic hypotension and RW during assessment, ed pt in back precautions and pt practices log rolling. M7 PT-IP Assessment and Plan Start: 04/03/24 08:16 Freq: NEEDED Status: Active Protocol: Document 04/03/24 08:49 MB (Rec: 04/03/24 10:30 MB [id number]) PT Summary Assessment and Plan Potential Rehabilitation Potential Good Status of Condition at Evaluation Evolving Summary Impairments Balance,Coordination,Bed Mobility,Transfers,Gait, Activity Tolerance Progress Towards Goals Slow Progress - Other Assessment Summary Pt is a pleasant 79 y/o male POD1 lumbar TLIF and hardware removal. He has not yet been OOB on PT arrival and d/c order is already in chart. Pt with history of PD and he is light-headed upon sitting up to EOB and his systolic BP drops 23 mmHg sit to stand and he con't with symptoms when standing and taking a few steps. This limits mobility with PT and returned to bed and supine and nsg student also to remove catheter. Recommend up to chair with nsg and progress gait and steps when BP is stable. He is currently min A for minimal mobility. Supportive and daughter nearby for assessment and PT obtains order for and RW for pt. Communicated with nsg about orthostatics. Goals Bed Mobility Goal Independent Transfer Goal Independent,Front Wheeled Walker Gait Goal Independent,Front Wheel Walker Gait Distance 100 Other Goals Pt will ascend and descend 3 steps with LRAD and min A to allow safe home entrance. Days to Meet Goals 3 Frequency of Treatment Frequency Of Treatment Twice a Day Treatment Plan Physical Therapy Treatment Plan Bed Mobility Training,Transfer Training,Gait Training, Therapeutic Exercise,Balance Retraining,Post Op Education, Discharge Planning,Hot or Cold Pack,Neuromuscular Re-ed, Coordination Retraining,Manual Therapy Precautions Lumbar Precautions Log Roll,No Twisting,Limit Bending,Lifting Restriction of 10 lbs,Gait Belt above Incisional Area Recommendations To Nursing Amount of Assist Needed 1 Person Assist Discharge Recommendations PT Discharge Recommendations Home with 04/12 Assist Available Other Discharge Recommendations May need HH Equipment Needed for Home Before PT obtained RW Discharge Transportation Needs at Discharge Private Vehicle
--- NOTE | 2024-04-03 13:00 | PT.IPTN ---
Current Diagnoses Pseudarthrosis after fusion or arthrodesis (04/02/24) Other mechanical complication of other internal orthopedic devices, implants and grafts, initial encounter (04/02/24) Surgery Performed Operation Date: 04/02/24 12:15 Actual Procedures p L4-5 TLIF, L2-5 HWR-Jessica - Miguel Lala MD Physical Therapy Treatment Note M2 PT-IP Current Condition Start: 04/03/24 08:16 Freq: NEEDED Status: Active Protocol: Document 04/03/24 08:49 MB (Rec: 04/03/24 10:30 MB [id number]) Physical Therapy Current Condition Current Condition Evaluation Date 04/03/24 Treatment Diagnosis L4-5 TLIF, L2-5 hardware removal M3 PT-IP Subjective Start: 04/03/24 08:16 Freq: NEEDED Status: Active Protocol: Document 04/03/24 13:29 TS (Rec: 04/03/24 13:54 TS [id number]) Subjective Physical Therapy Visit Type Type Treatment Note Visit Start Time 13:00 Visit Stop Time 13:29 Notes BP: 139/75 sitting, 120/79 standing, 109/69 standing, 150 /71 sitting Number of HUMAN FACTORS SCIENTIST Visits 1 Physical Therapy Visit Comments Patient Comments Pt is agreeable to PT. Therapy Pain Assessment Pain When Pain Assessed At Rest Pain Present Pain Present Pain Reported M4 PT-IP Mobility and Gait Start: 04/03/24 08:16 Freq: NEEDED Status: Active Protocol: Document 04/03/24 13:29 TS (Rec: 04/03/24 13:54 TS [id number]) PT-Bed Mobility Assessment Rolling Type of Rolling Log Rolling,Roll to Right Level of Assist Standby Assistance Supine to Sit Supine to Sit Standby Assistance Sit to Supine Sit to Supine Standby Assistance PT-Transfer Assessment Sit to and From Stand Sit to and from Stand Contact Guard Assistance,1 Person Assistance,Use of Upper Extremities Equipment Transfer Assistive Device Gait Belt,Front Wheeled Walker Orthotic/Prosthetic Devices or Brace: No Comments Mobility Comments Pt performs heels slides and ankle pumps in bed prior to mobility. Pt recalls 2/3 spinal precautions(no bending) . Logroll to R side SBA. Supine to sit SBA with cues for sequencing. BP in sitting 139/75. Spouse dons gait belt with pt sitting EOB. STS with FWW CGA, BP 120/79. Pt ambulates in the room ~60'SBA/ CGA with FWW, denies any dizziness/lightheadedness. BP in standing 109/69. Pt performs steps x3 with B DIRECTOR OF EDUCATION AND TRAINING. Pt sits in the chair, BP 150/ 71. Pt was left in the chair, all needs met. Gait Assessment Gait Gait Assistance Required: Standby Assistance,Contact Guard Assist Distance (Feet) 60 Able to Maintain Weight Bearing Status Yes During Gait Assistive Devices Assistive Device Gait Belt,Front Wheeled Walker Gait Deviations General Gait Pattern Decreased Stride Length, Decreased Feet Clearance, Flexed Trunk Factors Limiting Gait Function Factors Limiting Gait Function Decreased Activity Tolerance, Decreased Strength,Poor Balance Comments Gait Comments Pt ambulates with no dizziness or lightheadedness. Stair Climbing Assessment Evaluation Level of Assist On Stairs Standby Assistance Technique/Endurance Stair Climbing Direction Ascend and Descend Stair Climbing Technique Step to Step Number of Steps Climbed 3 Comments Stair Climbing Comments Stairs x3 with B DIRECTOR OF EDUCATION AND TRAINING. Son putting handrail in today. PT-Balance Assessment Sitting Balance and Reactions Static Sitting Balance Ability Good Dynamic Sitting Balance Ability Fair Standing Balance and Reactions Static Standing Balance Ability Fair Dynamic Standing Balance Ability Fair Device Used FWW M5 PT-IP Objective Assessments Start: 04/03/24 08:16 Freq: NEEDED Status: Active Protocol: Document 04/03/24 08:49 MB (Rec: 04/03/24 10:30 MB [id number]) Orientation Orientation/Cognition Level of Alertness Alert Orientation Name,Age,Birthday,Month,Date, Year,Place,Situation Language Function Ability No Deficits Noted Safety Awareness Decreased Safety Awareness Memory Description No Deficits Noted Comments Pt recalls rolling from previous back surgery and re- ed on back precautions today Gross Range of Motion Upper Extremity ROM Impairments Defer to OT Lower Extremity ROM Assessment Within Functional Limits Strength Lower Extremity Strength Assessment Within Functional Limits Comments Strength Comments LE range and strength functionally observed this date. Coordination Assessment Gross Coordination Gross Coordination Impaired Assessment Coordination Comments Bradykinesia and PD changes in right hand with writing Sensation Assessment Comments Sensation Comments Denies sensory changes M6 PT-IP Treatment Start: 04/03/24 08:16 Freq: NEEDED Status: Active Protocol: Document 04/03/24 13:29 TS (Rec: 04/03/24 13:54 TS [id number]) Physical Therapy Treatment Education Education Provided Precautions,Post-Op Packet, Safety M7 PT-IP Assessment and Plan Start: 04/03/24 08:16 Freq: NEEDED Status: Active Protocol: Document 04/03/24 13:29 TS (Rec: 04/03/24 13:54 TS [id number]) PT Summary Assessment and Plan Potential Rehabilitation Potential Good Summary Impairments Balance,Coordination,Bed Mobility,Transfers,Gait, Activity Tolerance Progress Towards Goals Progressing Toward Goals,Slow Progress - Other Assessment Summary Rd is making progress with his mobility. He is SBA for all bed mobility and demonstrates some carryover of sequencing. He progressed his gait to ~60'SBA/CGA with FWW. He performed stairs with DIRECTOR OF EDUCATION AND TRAINING, had no bukcling or LOB. PT is recommending pt return home with 04/12 assist. Goals Bed Mobility Goal Independent Transfer Goal Independent,Front Wheeled Walker Gait Goal Independent,Front Wheel Walker Gait Distance 100 Other Goals Pt will ascend and descend 3 steps with LRAD and min A to allow safe home entrance. Days to Meet Goals 3 Frequency of Treatment Frequency Of Treatment Twice a Day Treatment Plan Physical Therapy Treatment Plan Bed Mobility Training,Transfer Training,Gait Training, Therapeutic Exercise,Balance Retraining,Post Op Education, Discharge Planning,Hot or Cold Pack,Neuromuscular Re-ed, Coordination Retraining,Manual Therapy Precautions Lumbar Precautions Log Roll,No Twisting,Limit Bending,Lifting Restriction of 10 lbs,Gait Belt above Incisional Area Recommendations To Nursing Amount of Assist Needed 1 Person Assist Discharge Recommendations PT Discharge Recommendations Home with 04/12 Assist Available Equipment Needed for Home Before PT obtained RW Discharge Transportation Needs at Discharge Private Vehicle
--- NOTE | 2024-04-03 14:05 | OT.IP.EVAL ---
Current Diagnoses Pseudarthrosis after fusion or arthrodesis (04/02/24) Other mechanical complication of other internal orthopedic devices, implants and grafts, initial encounter (04/02/24) Surgery Performed Operation Date: 04/02/24 12:15 Actual Procedures p L4-5 TLIF, L2-5 HWR-Jessica Lala MD Past Medical History (Last Updated 03/27/24 @ 09:19 by Bessie Akbar, RN) Dermatitis Diabetes Easy bruisability GERD (gastroesophageal reflux disease) HTN (hypertension) Kidney stones Memory changes Neuropathy Parkinson disease Surgical History (Last Updated 03/27/24 @ 09:19 by Bessie Akbar RN) History of lumbar surgery (02/07/16) Hx of bilateral cataract extraction Hx of cholecystectomy Hx of elbow surgery Hx of lithotripsy Hx of shoulder surgery Hx of tonsillectomy Occupational Therapy Inpatient Evaluation/Re-Eval M1 PT/OT-IP Prior Functional Status Start: 04/03/24 08:16 Freq: NEEDED Status: Active Protocol: Document 04/03/24 16:23 CGR (Rec: 04/03/24 16:37 CGR [id number]) Medical Review Prior Functional Status Medical History Reviewed Yes Diet/Fluid Consistency Regular Communication WNLs Mobility and Gait I Activities of Daily Living and IADL's assistance for socks and occ more assist for showers and dressing, depending on the day Prior Functional Level (Other details) Pt with recent dx of PD, about a year Social History Household Members spouse Living Arrangements House Number of Floors (Floors) One Floor Number of Stairs To Enter/Railing? 3 steps and new railing being installed today by son in law Home Environment High Toilet,Walk in Shower, Built-In Shower Seat Home Equipment Front Wheel Walker,Sports Therapist Employment Status Retired Additional Social History Comment Pt has regular flat bed and no rails and no AD in the home but a walker has now been issued to him. M2 OT-IP Current Condition Start: 04/03/24 16:23 Freq: Status: Active Protocol: Document 04/03/24 16:23 CGR (Rec: 04/03/24 16:37 CGR [id number]) Occupational Therapy Current Condition Current Condition Evaluation Date 04/03/24 Treatment Diagnosis L2-3, L3-4, L4-5 TLIF Diagnosis Onset Date 04/02/24 M3 OT- IP Subjective and Pain Start: 04/03/24 16:23 Freq: Status: Active Protocol: Document 04/03/24 16:23 CGR (Rec: 04/03/24 16:37 CGR [id number]) OT- Subjective Occupational Therapy Visit Type Type Initial Evaluation Visit Start Time 13:33 Visit Stop Time 14:05 Notes Pt still orthostatic with P.T. just prior to working with Ot but not symptomatic. OT Pain Assessment Pain When Pain Assessed At Rest Pain Present Pain Present Pain Reported Location Back Intensity 2 Scale Used Numeric (0 - 10) Management Techniques Distraction,Modification of Treatment,Re-positioning M4 OT- IP ADL's Start: 04/03/24 16:23 Freq: Status: Active Protocol: Document 04/03/24 16:23 CGR (Rec: 04/03/24 16:37 CGR [id number]) OT [id number] Comments OT Self-Feeding Comments not meal time OT ADL-Grooming General Evaluation Grooming Ability Independent Areas Needing Assistance Face Washing Comments OT Grooming Comments standing at sink OT ADL-Oral Care General Eval Oral Care Ability Independent Areas of Assistance Brushing Teeth,Retrieving/Set- Up of Items Comments Oral Care Comments standing at sink OT ADL-Dressing Comments OT Dressing Comments Discussed use of rn recovery and sock aid. Pt states that his will likely help him with things but that he remembers how to use the sock aid incase he wants to use it. OT ADL-Toileting Comments OT Toileting Comments Pt shown how to use the walker over the toilet for standing urination. OT ADL-Bathing Comments OT Bathing Comments not performed M5 OT- IP IADL's Start: 04/03/24 16:23 Freq: Status: Active Protocol: Document 04/03/24 16:23 CGR (Rec: 04/03/24 16:37 CGR [id number]) OT-Instrumental Activities of Daily Living Deficits IADL Deficits Identified No Deficits Home Safety Awareness Awareness of Need for Assistance at Home Good Awareness Ability to Problem Solve Emergency Able to Problem Solve Situations Medication Management Medication Management No Deficits Identified Money Management Money Management No Deficits Identified Meal Preparation Meal Preparation Caregiver Provides Assist Paper Sealer Paper Sealer Caregiver Provides Assist Driving Driving Comments Pt understands that he should not be driving at this time till cleared by M6 OT- IP Functional Cognition Start: 04/03/24 16:23 Freq: Status: Active Protocol: Document 04/03/24 16:23 CGR (Rec: 04/03/24 16:37 CGR [id number]) Cognitive Factors Limiting Selfcare Function Cognitive Ability Level of Alertness Alert Patient Orientation Name,Age,Birthday,Month,Date, Year,Day of Week,Place, Situation Attention Span Ability Capable of Focused Attention, Capable of Sustained Attention Ability to Follow Commands Able to Follow One Step Commands with Increased Time, Able to Follow One Step Commands with Repetition OT- Vision and Hearing OT- Hearing Assessment OT- Hearing Assessment WFL OT- Vision Assessment Vision History Cataracts Visual Acuity Glasses All The Time Visual Attentiveness WFL Occular Pursuits WFL Visual Convergence WFL Vision Assessment Comments Pt has trifocals. M7 OT- IP Mobility and Balance Start: 04/03/24 16:23 Freq: Status: Active Protocol: Document 04/03/24 16:23 CGR (Rec: 04/03/24 16:37 CGR [id number]) OT-Transfer Assessment Sit to and From Stand Sit to and from Stand Contact Guard Assistance Transfers Transfer Ability Contact Guard Assistance Technique Transfer Destination Chair Transfer Technique Stand Step Pivot Devices Transfer Assistive Devices Gait Belt,Front Wheeled Walker Comments Mobility Comments Mobility around the room. OT- Gait Assessment Gait Gait Assistance Required: Standby Assistance,Contact Guard Assist Assistive Devices Assistive Device Gait Belt,Front Wheeled Walker Comments Gait Ability Comments Mobility around the room. OT- Balance Assessment Sitting Balance and Reactions Static Sitting Balance Ability Good Dynamic Sitting Balance Ability Good M8 OT- IP Objective Assessments Start: 04/03/24 16:23 Freq: Status: Active Protocol: Document 04/03/24 16:23 CGR (Rec: 04/03/24 16:37 R [id number]) OT Gross Range of Motion Upper Extremity Range of Motion Assessment Within Functional Limits OT Strength Upper Extremity Strength Assessment Within Functional Limits Comments Strength Comments grossly 4/5 OT- Coordination Assessment Upper Extremity Finger to Nose Test Within Functional Limits Finger Tapping Test Within Functional Limits OT-Muscle Tone Assessment Muscle Tone WNL Yes OT Sensation Assessment Comments Summary Comments Pt states he has neuropathy type symptoms to his feet and calfs but that he is not sure it is neuropathy. Edema Edema Absent M9 OT- IP Assessment and Plan Start: 04/03/24 16:23 Freq: Status: Active Protocol: Document 04/03/24 16:23 CGR (Rec: 04/03/24 16:37 CGR [id number]) OT Summary Assessment and Plan Potential Rehabilitation Potential Excellent Analytic Complexity at Evaluation Low Summary OT Impairments Pain,Balance,Functional Mobility,Grooming,Dressing, Toileting,Bathing,Toilet Transfers,Shower Transfers, Activity Tolerance Progress Towards Goals Progressing Toward Goals Assessment Summary Pt presents as a low complexity evaluation s/p admit for L2-3, L3-4, and L 4- 5 TLIF. Pt is able to state 2 of the three back precautions but needs extra time. Pt is doing well and is eager to discharge home with family support. Recommend d/c home with family support. Frequency of Treatment Frequency Of Treatment Discharge Discharge Recommendations OT Discharge Recommendations Home with Assistance Transportation Needs at Discharge Private Vehicle
--- NOTE | 2024-04-03 14:53 | PC.NURSE ---
Discharge Note Patient A&O, VSS, RA, no complaints of pain/discomfort. Discharge packet reviewed with patient, all questions/concerns addressed. PIV discontinued. Patient able to dress and pack all belongings. Patient taken down via wheelchair to POV.
== END 2024-04-03 14:45 | disposition home or self-care (01) | DRG 402 ==
PROVIDERS: Admitting Provider Orthopaedic Surgery Orthopaedic Surgery of the Spine; Referring Provider Orthopaedic Surgery Orthopaedic Surgery of the Spine; Visit Provider Orthopaedic Surgery Orthopaedic Surgery of the Spine
PROC: 0SG00AJ Fusion of Lumbar Vertebral Joint with Interbody Fusion Device, Posterior Approach, Anterior Column, Open Approach (ICD-10-PCS; principal; 2024-04-02 12:15)
DX: M48.061 Spinal stenosis, lumbar region without neurogenic claudication (principal); M96.0 Pseudarthrosis after fusion or arthrodesis; T84.038A Mechanical loosening of other internal prosthetic joint, initial encounter; G20.A1 Parkinson's disease without dyskinesia, without mention of fluctuations; M54.16 Radiculopathy, lumbar region; M96.1 Postlaminectomy syndrome, not elsewhere classified; K21.9 Gastro-esophageal reflux disease without esophagitis; E11.40 Type 2 diabetes mellitus with diabetic neuropathy, unspecified; R41.3 Other amnesia; Z79.84 Long term (current) use of oral hypoglycemic drugs; Z98.1 Arthrodesis status
CPT/HCPCS: 72100; 76000; 82962; 85014; 85018; 97116; 97161; 97165; 97530; 97535; C1713; C9290; J0171; J0690; J1100; J2405; J2704; J3010; J3410